=== PATIENT | female | born 1955 | race Caucasian/White ===

== ENCOUNTER → 2019-10-07 | Outpatient (CLI) | payer OTHER | LOC: RT 10:08 | PROVIDERS: ATTEND Internal Medicine Rheumatology | DX: J45.909 Unspecified asthma, uncomplicated (principal) | CPT/HCPCS: 94010; 94727; 94729; 94761 ==

== ENCOUNTER → 2020-07-04 | Outpatient (CLI) | payer MEDICARE, OTHER ==
--- NOTE | 2020-07-04 16:04 | Pulmonary Function Test ---
Pulmonary Function Test Date of Procedure:: 07/04/20 INDICATION:: Dyspnea-ILD Referring Provider: Aldo Oliveira MD [employer] Coordinator: Darlyn Rinaldi DIRECTOR OF COMMUNITY EDUCATION, DIRECTOR OF INTEGRATED MARKETING - Report Spirometry: Spirometry: pre-FVC: 3.39 L 110% pre-FEV:1 2.30 L 94% pre-FEV1/FVC %: 68 predicted: 82 [id number]%: 1.32 L 52% Lung Volume: Total lung capacity: 4.92 L 95% Vital capacity: 3.39 L 110% Inspiratory capacity: 3.32 L FRC N2: 1.60 L 77% RV: 1.53 L 76% RV/TLC %:: 31 predicted 39 Diffusion Capactity: DLCO: 21.3 77% DLCO/VA: 4.01 106% Impression: Mild obstructive ventilatory defect. No restrictive ventilatory defect hyperinflation or air trapping. Mild decrease in diffusion capacity. Compared with the study done October 14 2019; there is a slight improvement FEV1/FVC%. Lung volumes are essentially the same. There is 10% improvement in diffusion capacity from 67% to 77%
== END ==
LOC: RT 09:29
PROVIDERS: ATTEND Internal Medicine Rheumatology
DX: J84.9 Interstitial pulmonary disease, unspecified (principal)
CPT/HCPCS: 94010; 94727; 94729